=== PATIENT | female | born 1960 | race Caucasian/White ===

== ENCOUNTER 2016-11-03 16:35 | Emergency (ER) | payer MEDICARE, BC ==
[2016-11-03] MEDS ORDERED: KETOROLAC TROMETHAMINE 30 MG/ML SOL IM ONE (17:18)
[2016-11-03] MEDS ORDERED: PREDNISONE 20 MG TAB PO ONE (17:18)
[2016-11-03] MEDS ORDERED: PREDNISONE 20 MG TAB ONE (17:37)
[2016-11-03] MEDS ORDERED: KETOROLAC TROMETHAMINE 30 MG/ML SOL ONE (17:37)
[2016-11-03 18:36] VITALS: BP 153/99; PULSE 82; RESP 17; TEMP 97.9; O2SAT 97
== END 2016-11-03 18:29 | disposition home or self-care (01) | DRG 192 ==
LOC: ED 16:35
DX: J44.9 Chronic obstructive pulmonary disease, unspecified (principal); R09.1 Pleurisy
CPT/HCPCS: 71010; 99284; J1885